=== PATIENT | male | born 2000 | race Caucasian/White ===

== ENCOUNTER 2019-06-11 17:35 | Emergency (ER) | payer OTHER, SELFPAY ==
[2019-06-11 17:56] VITALS: BP 126/71; PULSE 84; RESP 18; TEMP 37.4; O2SAT 100; BMI 19.8
--- NOTE | 2019-06-11 18:30 | ED_ITS ---
HPI - Headache General Chief Complaint: Headache Stated Complaint: Head Injury Time Seen by Provider: 06/11/19 18:01 Source: patient and family Mode of arrival: Ambulatory Limitations: no limitations History of Present Illness HPI Narrative: Patient is a 19-year-old male who is autistic presenting with headache. He has a tendency to hit himself with his hand on his head repetitively and sometimes quite hard he did this about 3 or 4 days ago. Mom states that did feel soft and bruise in the area that he hit. Today he noticed some leakage from his right ear, got worried and came to the emergency department. He has not had any nausea or vomiting no weakness own he occasionally has some blurry vision but not now. He is currently listening to head phones MD Complaint: headache Location: right Severity: mild Related Data Allergies Allergy/AdvReac Type Severity Reaction Status Date / Time No Known Drug Allergies Allergy Verified 06/11/19 17:55 Review of Systems Review of Systems Narrative: GENERAL: Denies chills, fatigue, malaise, fever, sweats, travel HEENT: Denies sinus pain, ear pain, sore throat, difficulty swallowing, neck pain RESPIRATORY: Denies dyspnea, cough, wheezing, hemoptysis, sputum. CARDIOVASCULAR: Denies chest pain, palpitations, orthopnea, edema GASTROINTESTINAL: Denies nausea, vomiting, abdominal pain, diarrhea, constipation, melena. : Denies dysuria, frequency, incontinence, hematuria, urinary retention, flank pain. MUSCULOSKELETAL: Denies weakness, joint pain, or bony pain SKIN: No rash, no erythema, no pruritus NEUROLOGIC: See HPI Denies weakness, dizziness, headache, numbness, change in speech, confusion PSYCHIATRIC: No concerning psychosocial issues. 12 point review of systems is negative except for those stated above and HPI Patient History Medical History Medical History Autism (Acute) Exam Initial Vital Signs Initial Vital Signs: Vital Signs Temperature 99.3 F 06/11/19 17:56 Pulse Rate 84 06/11/19 17:56 Respiratory Rate 18 06/11/19 17:56 Blood Pressure 126/71 06/11/19 17:56 Pulse Oximetry 100 06/11/19 17:56 GENERAL: Well-appearing, well-nourished and in no acute distress. HEENT: Head atraumatic, no crepitations no depression mild tenderness on the right side no significant contusion or laceration EOMI, pupils reactive, face symmetric. EARS: Left ear has cerumen impaction no significant erythema no mastoid tenderness. All right ear tympanic membrane is visualized complete no significant drainage, no hemotympanum CARDIOVASCULAR: Regular rate and rhythm without murmurs, rubs or gallops. RESPIRATORY: Breath sounds equal bilaterally, no wheezes rales or rhonchi. ABDOMEN: Soft, nontender. Normoactive bowel sounds all 4 quadrants. No guarding or rebound. EXTREMITIES: Normal range of motion, no clubbing or edema. Neurovascularly intact NEUROLOGICAL: Alert and oriented x4.Normal gait and speech. Cranial nerves II through XII grossly intact. fire and safety helper strength equal bilaterally Strength and lower extremities equal SKIN: Warm, dry, no laceration, no petechiae, no rashes or lesions. Scores GCS Anderson coma scale eye opening: Spontaneous Rachel coma scale verbal response: Orientated Anderson coma scale motor response: Obey commands Rachel coma scale total score: 15 Course Orders Ordered: Discontinued Medications Ibuprofen (Advil) 800 mg PO NOW ONE Stop: 06/11/19 18:44 Last Admin: 06/11/19 18:53 Dose: 800 mg Documented by: CPRUITT Vital Signs Vital signs: Vital Signs - 8 hr 06/11/19 17:56 Temperature 99.3 F Pulse Rate 84 Respiratory Rate 18 Blood Pressure 126/71 Pulse Oximetry 100 MDM - Headache MDM Narrative Medical decision making narrative: Patient has no history or significant sign of head trauma. He did hit his head with his hand he does have a mild bruise. This was 3 or 4 days ago he has not had any neurologic changes no persistent vomiting to suggest concussion. He does have a mild headache. No drainage from his ears, he was worried it might be CSF. Explanation to both pain patient and parents no need for CT head. Recommend Motrin if needed for headache. Parents are requesting therapy referral to help him stop heating himself. Apparently when he was younger he use to comb his hair so hard until his scalp bled. I discussed all findings with the patient and parent, Education has been performed regarding treatment plan, diagnosis, warning signs and symptoms and all concerns have been addressed. Verbally agree with and understood all of the above. Discharge Plan Departure Patient Disposition: Home Clinical Impression: Headache Qualifiers: Headache type: unspecified Headache chronicity pattern: acute headache Intractability: not intractable Qualified Code(s): R51 - Headache Discharge Date/Time: 06/11/19 18:57 Instructions: DI for Headache Activity Restrictions/Additional Instructions: *You have been diagnosed with headache *What to do: Try not to hit herself in head try hitting a pillow or something else soft *Continue to take medications as directed Ibuprofen 600-800 mg every 8 hours if needed for pain *Follow up with your primary care provider in 2-3 days *Return to ER if you should have persistent vomiting, weakness, or any new, worsening or concerning symptoms Referrals: Antonio Degroot DO [Physician] -
[2019-06-11] MEDS: IBUPROFEN 400 MG TABLET 800 MG PO (18:53)
== END 2019-06-11 18:57 | disposition home or self-care (01) ==
PROVIDERS: Emergency Provider Emergency Medicine
DX: R51 Headache (principal)
CPT/HCPCS: 99282; 99283

== ENCOUNTER 2021-08-03 13:45 | Emergency (ER) | payer OTHER, MEDICAID, SELFPAY ==
[2021-08-03 14:00] VITALS: BP 116/54; PULSE 64; RESP 18; TEMP 36.7; O2SAT 100; BMI 18.4
--- NOTE | 2021-08-03 15:10 | DI.RAD.S_ITS ---
PROCEDURE: XR CHEST 2V INDICATIONS: COVID + / cough TECHNIQUE: 2 views of the chest were acquired. COMPARISON: None. FINDINGS: Surgical changes and devices: None. Lungs and pleura: Lungs are clear. No pleural effusions or pneumothorax. Mediastinum: Mediastinal contours are normal. Heart size is normal. Bones and chest wall: No suspicious bony abnormalities. Soft tissues appear unremarkable. IMPRESSION: No focal infiltrates are seen. If there is clinical concern for a developing pulmonary process, a short-term followup chest series (with PA and lateral views, performed in deep inspiration) is suggested for further evaluation. Dictated by: Giovanny Rodriguez M.D. on 08/03/2021 at 14:30 Approved by: Giovanny Rodriguez M.D. on 08/03/2021 at 14:30
[2021-08-03 15:13] LABS: COVID19 -Nasal RAPID POSITIVE (Negative)
[2021-08-03 16:27] VITALS: BP 110/52; PULSE 57; O2SAT 100
--- NOTE | 2021-08-03 21:00 | ED_ITS ---
HPI - Recheck/Abnormal Lab/Rx <Poly Caputo PA-C - Last Filed: 08/03/21 21:04> General Chief Complaint: Recheck/Abnormal Lab/Rx Stated Complaint: Cough- exposure to Covid Time Seen by Provider: 08/03/21 16:27 Source: patient Mode of arrival: Ambulatory Limitations: no limitations History of Present Illness HPI narrative: 21-year-old male with past medical history autism presents to the ED with cough and congestion, fever, chills for 10 days. Patient states he has been experiencing the symptoms for 10 days, however that he is improving. Patient denies chest pain, shortness of breath, nausea, vomiting, abdominal pain, dysuria, flank pain, lightheadedness, dizziness, syncope. Patient's mother is currently hospitalized for a week due to COVID-19 pneumonia. Patient is in the ED with his father to be tested for COVID-19. Patient is unvaccinated for COVID-19. Related Data Allergies Allergy/AdvReac Type Severity Reaction Status Date / Time No Known Drug Allergies Allergy Verified 08/03/21 14:07 Review of Systems <Poly Caputo PA-C - Last Filed: 08/03/21 21:04> Review of Systems ROS Unobtainable: All systems reviewed & are unremarkable except as noted in HPI and below Constitutional Constitutional: Reports chills, Denies fatigue, Reports fever(s), Denies frequent falls, Denies lethargy and Denies weakness Eyes Eyes: Denies change in vision, Denies eye discharge, Denies irritation and Denies loss of vision ENT Ears, Nose, Mouth, and Throat: Denies change in voice, Denies dizziness, Reports nasal congestion, Denies neck pain, Denies sore throat and Denies throat swelling Cardiovascular Cardiovascular: Denies chest pain, Denies irregular heart rhythm, Denies lightheadedness, Denies palpitations, Denies dyspnea, Denies dyspnea on exertion and Denies orthopnea Respiratory Respiratory: Reports cough, Denies dyspnea, Denies dyspnea on exertion and Denies wheezing Gastrointestinal Gastrointestinal: Denies abdominal pain, Denies change in bowel habits, Denies diarrhea, Denies nausea and Denies vomiting Genitourinary Genitourinary: Denies hematuria, Denies flank pain, Denies urinary incontinence and Denies urinary urgency Musculoskeletal Musculoskeletal: Denies back pain, Denies muscle weakness, Denies neck pain, Denies numbness and Denies tingling Integumentary/Breasts Skin/Breast: Denies pruritus, Denies erythema, Denies rash and Denies wounds Neurologic Neurologic: Denies behavioral changes, Denies confusion, Denies dizziness, Denies frequent falls, Denies loss of vision, Denies numbness, Denies tingling and Denies weakness Psychiatric Psychiatric: Denies anxiety, Denies behavioral changes, Denies confusion, Denies depression, Denies homicidal ideation and Denies suicidal ideation Endocrine Endocrine: Denies fatigue, Denies flushing and Denies palpitations Hematologic/Lymphatic Hematologic/Lymphatic: Denies easy bruising Allergic/Immunologic Allergic/Immunologic: Denies urticaria, Denies throat swelling and Denies wheezing Patient History <Poly Caputo PA-C - Last Filed: 08/03/21 21:04> Medical History Autism Social History Smoking Status: Never smoker Smoking Status: Never smoker alcohol intake frequency: 0-2 drinks per day Substance Use Type: does not use Exam <Poly Caputo PA-C - Last Filed: 08/03/21 21:04> Initial Vital Signs Initial Vital Signs: Vital Signs Temperature 98.1 F 08/03/21 14:00 Pulse Rate 64 08/03/21 14:00 Respiratory Rate 18 08/03/21 14:00 Blood Pressure 116/54 L 08/03/21 14:00 Pulse Oximetry 100 08/03/21 14:00 Const General: cooperative, healthy appearing and comfortable [facility] Head: normal to inspection Eyes General: appearance normal, both eyes and all related structures Neck Neck: normal visual inspection Chest Chest: normal inspection of the chest Resp Effort & Inspection: normal respiratory effort Auscultation: clear to auscultation bilaterally Cardio Rate: regular rate Rhythm: regular rhythm GI Other: Abdomen is soft, nondistended, non tender to palpation. General: No CVA tenderness Skin General: no rashes or lesions noted Neuro General: patient alert, patient awake and patient oriented x3 <Bina Boyd MD - Last Filed: 08/08/21 23:56> Initial Vital Signs Initial Vital Signs: Vital Signs Temperature 98.1 F 08/03/21 14:00 Pulse Rate 64 08/03/21 14:00 Respiratory Rate 18 08/03/21 14:00 Blood Pressure 116/54 L 08/03/21 14:00 Pulse Oximetry 100 08/03/21 14:00 Course <Poly Caputo PA-C - Last Filed: 08/03/21 21:04> Orders Ordered: ED Orders 08/03/21 14:32 COVID19 -Nasal swab/Pre-Proc Stat 08/03/21 15:10 XR chest 2V Stat Vital Signs Vital signs: Vital Signs - 8 hr 08/03/21 14:00 08/03/21 16:27 Temperature 98.1 F Pulse Rate 64 57 L Respiratory Rate 18 Blood Pressure 116/54 L 110/52 L Pulse Oximetry 100 100 <Bina Boyd MD - Last Filed: 08/08/21 23:56> Orders Ordered: ED Orders 08/03/21 14:32 COVID19 -Nasal swab/Pre-Proc Stat 08/03/21 15:10 XR chest 2V Stat Vital Signs Vital signs: Vital Signs - 8 hr 08/03/21 14:00 08/03/21 16:27 Temperature 98.1 F Pulse Rate 64 57 L Respiratory Rate 18 Blood Pressure 116/54 L 110/52 L Pulse Oximetry 100 100 MDM - Recheck/Abnormal Lab/Rx <Poly Caputo PA-C - Last Filed: 08/03/21 21:04> Lab Data Labs: Lab Results 08/03/21 Range/Units 14:32 SARS-CoV-2 (PCR) Positive H (Negative) MDM Narrative Medical decision making narrative: 21-year-old male with past medical history autism presents to the ED with cough and congestion, fever, chills for 10 days. Concern for COVID-19 infection versus other viral URI syndrome. Will test for COVID-19. COVID-19 PCR test was positive. Chest x-ray without acute changes. Patient's vitals are stable in the ED. Patient has no trouble breathing. ED return precautions discussed with patient. Patient verbalized understanding. Discharged patient home. <Bina Boyd MD - Last Filed: 08/08/21 23:56> Lab Data Labs: Lab Results 08/03/21 Range/Units 14:32 SARS-CoV-2 (PCR) Positive H (Negative) Discharge Plan Departure Patient Disposition: Home Clinical Impression: COVID-19 Instructions: DI for COVID-19 (Suspected or Confirmed ) Activity Restrictions/Additional Instructions: You were evaluated in the ED today for cough and congestion. Your chest x-ray was normal. You tested positive for COVID-19. You vitals are stable. Please isolate yourself for 10 days from the start of your symptoms. Please wear a mask, wash hands frequently. Return to the ED if your symptoms worsen, you experience trouble breathing. <Bina Boyd MD - Last Filed: 08/08/21 23:56> Cosign ED Attending Cosignature Attestation: I was immediately available in the department for consultation throughout this patient's visit. I agree with documentation as above. Bina Boyd MD
== END 2021-08-03 16:51 | disposition home or self-care (01) ==
PROVIDERS: Emergency Medicine; Emergency Provider Student in an Organized Health Care Education/Training Program
DX: U07.1 COVID-19 (principal)
CPT/HCPCS: 71046; 87635; 99282; 99283; C9803

== ENCOUNTER 2025-05-03 02:15 | Emergency (ER) | payer MEDICARE, MEDICAID, SELFPAY ==
[2025-05-03 02:10] VITALS: BP 131/60; PULSE 80; RESP 16; TEMP 36.6; O2SAT 98
--- NOTE | 2025-05-03 02:29 | ED.PSYCH ---
HPI - Psych <Montse Sanchez DO - Last Filed: 05/04/25 04:10> General Chief Complaint: Psychiatric Symptoms Stated Complaint: Panic attack, SI Time Seen by Provider: 05/03/25 02:17 Source: patient, RN notes reviewed and old records reviewed Mode of arrival: EMS Limitations: no limitations History of Present Illness HPI Narrative: 25-year-old male history of autism who presents after hitting himself repeatedly after getting quite agitated. Was reportedly at the [facility] earlier during the day patient states loud noises exacerbated days. Patient was at a [place] [facility] [place] for some period time but per EMS was kicked out and taken to [facility] emergency department patient was ultimately discharged home to parents. Patient denies any thoughts of harming others. EMS states he did get quite agitated particularly around his father. Able to calm with verbal deescalation. Patient denies any tobacco, alcohol or recreational drugs. Olanzapine versus Risperdal as well as Ativan. Per EMS patient's father stated that he would like him held on a 72 hour hold that he would not be coming to the hospital to pick him up. Per EMS father also stated that if he was not admitted somewhere he would kick him out. Nursing reached out to mother. She was unaware of current situation. Okay with bloodwork, work up ect. Nursing spoke with father. Requests evaluation and MAE secondary to self injury and gravely disabled. Related Data Previous Rx's ?Medication ?Instructions ?Recorded sulfamethoxazole 800 1 tab PO Q12H #10 tabs 05/03/25 mg-trimethoprim 160 mg tablet (Bactrim DS) Allergies Allergy/AdvReac Type Severity Reaction Status Date / Time No Known Drug Allergies Allergy Verified 05/03/25 03:01 Review of Systems <Montse Sanchez DO - Last Filed: 05/04/25 04:10> Review of Systems ROS Unobtainable: All systems reviewed & are unremarkable except as noted in HPI and below Patient History <Montse Sanchez DO - Last Filed: 05/04/25 04:10> Medical History (Updated 05/03/25 @ 15:48 by Servando Heller DO) Autism Social History Smoking Status: Never smoker alcohol intake frequency: 0-2 drinks per day Exam <Montse Sanchez, DO - Last Filed: 05/04/25 04:10> Narrative Exam Narrative: GEN: Patient appears in moderate distress. HEAD: No evidence of trauma, no raccoon/Stephens sign. NECK: Nontender, painless range of motion, trachea midline Negative Nexus criteria, no midline line tenderness, distracting injury, altered mental status, neuro deficit, recent EtOH. EYES: PERRLA, EOMI ENT: Patient has some erythema swelling and abrasion in his right cheek, trachea is midline, TM's are normal no hemotypanum, Nares are clear, no septal hematoma, no dental or oral injury, airway is normal and with normal occlusion, No bony tenderness on exam, patient can fully open and close his mouth, able to bite down without issue. RESP: Chest is nontender and has symmetric movement, no ecchymosis, breath sounds are normal no crackles, wheezes or rales CVS: Heart sounds are normal, no murmur noted, No JVD. ABG/GI: Nontender, soft, normal bowel sounds, no distention, no organomegaly, pelvic rock is negative NEURO: Oriented AOx3, neuro is grossly intact, sensation and motor is normal all 4 extremities moving, cranial nerves II through XII are intact, GCS is 15 PSYCH: Anxious. SKIN: Intact, warm and dry, no crepitus and without decubitus BACK: No CVA tenderness, no vertebral tenderness, no step-off's, no crepitus EXT: Atraumatic, hips are nontender, no pedal edema, normal color and temperature, normal range of motion of extremities with normal tendon exam, 2+ pulses in all four extremities Initial Vital Signs Initial Vital Signs: Vital Signs Temperature 97.8 F 05/03/25 02:10 Pulse Rate 80 05/03/25 02:10 Respiratory Rate 16 05/03/25 02:10 Blood Pressure 131/60 05/03/25 02:10 Pulse Oximetry 98 05/03/25 02:10 Oxygen Delivery Method Room Air 05/03/25 02:10 <Servando Heller, DO - Last Filed: 05/03/25 15:48> Initial Vital Signs Initial Vital Signs: Vital Signs Temperature 97.8 F 05/03/25 02:10 Pulse Rate 80 05/03/25 02:10 Respiratory Rate 16 05/03/25 02:10 Blood Pressure 131/60 05/03/25 02:10 Pulse Oximetry 98 05/03/25 02:10 Oxygen Delivery Method Room Air 05/03/25 02:10 Course <Montse Sanchez DO - Last Filed: 05/04/25 04:10> Orders Ordered: Discontinued Medications Fosfomycin Tromethamine (Fosfomycin 3 Gm Packet) 3 gm PO NOW ONE Stop: 05/03/25 05:22 Last Admin: 05/03/25 06:50 Dose: 3 gm Documented By: CAROLANN Haloperidol (Haloperidol 5 Mg/Ml Vial) 5 mg IM NOW ONE Stop: 05/03/25 02:51 Lorazepam (Lorazepam 2 Mg/Ml Inj) 1 mg IM NOW ONE Stop: 05/03/25 02:51 Lorazepam (Lorazepam 0.5 Mg Tablet) 1 mg PO NOW ONE Stop: 05/03/25 12:28 Last Admin: 05/03/25 16:20 Dose: Not Given Documented By: ASHLEY Risperidone (Risperidone 0.25 Mg Tablet) 0.5 mg PO BID UNA Last Admin: 05/03/25 16:20 Dose: Not Given Documented By: ASHLEY Trimethoprim/Sulfamethoxazole (Trimeth/Sulfa 160/800 (Ds) Tablet) 1 tab PO NOW ONE Stop: 05/03/25 15:48 Last Admin: 05/03/25 16:21 Dose: 1 tab Documented By: ASHLEY Vital Signs Vital signs: Vital Signs - 8 hr 05/03/25 11:15 Temperature 98.2 F Pulse Rate 74 Respiratory Rate 17 Blood Pressure 124/70 Pulse Oximetry 96 Oxygen Delivery Method Room Air <Servando Heller DO - Last Filed: 05/03/25 15:48> Orders Ordered: Discontinued Medications Fosfomycin Tromethamine (Fosfomycin 3 Gm Packet) 3 gm PO NOW ONE Stop: 05/03/25 05:22 Last Admin: 05/03/25 06:50 Dose: 3 gm Documented By: CAROLANN Haloperidol (Haloperidol 5 Mg/Ml Vial) 5 mg IM NOW ONE Stop: 05/03/25 02:51 Lorazepam (Lorazepam 2 Mg/Ml Inj) 1 mg IM NOW ONE Stop: 05/03/25 02:51 Lorazepam (Lorazepam 0.5 Mg Tablet) 1 mg PO NOW ONE Stop: 05/03/25 12:28 Last Admin: 05/03/25 16:20 Dose: Not Given Documented By: ASHLEY Risperidone (Risperidone 0.25 Mg Tablet) 0.5 mg PO BID UNA Last Admin: 05/03/25 16:20 Dose: Not Given Documented By: ASHLEY Trimethoprim/Sulfamethoxazole (Trimeth/Sulfa 160/800 (Ds) Tablet) 1 tab PO NOW ONE Stop: 05/03/25 15:48 Last Admin: 05/03/25 16:21 Dose: 1 tab Documented By: ASHLEY Vital Signs Vital signs: Vital Signs - 8 hr 05/03/25 11:15 Temperature 98.2 F Pulse Rate 74 Respiratory Rate 17 Blood Pressure 124/70 Pulse Oximetry 96 Oxygen Delivery Method Room Air MDM - Psych <Montse Sanchez, - Last Filed: 05/04/25 04:10> Lab Data 05/03/25 03:35 05/03/25 03:35 Labs: Lab Results 05/03/25 05/03/25 05/03/25 Range/Units 03:35 04:20 04:50 WBC 12.5 H (4.5-11.0) X10^3/uL RBC 4.09 L (4.5-5.9) X10^6/uL Hgb 13.0 L (13.5-17.5) g/dL Hct 37.6 L (41-53) % MCV 91.8 (80-100) fL MCH 31.8 (26-34) PG MCHC 34.7 (30-36) % RDW 13.5 (11.6-14.8) % Plt Count 216 (150-400) X10^3/uL Neut % (Auto) 81.0 H (50-75) % Lymph % (Auto) 10.4 L (25-40) % Iron % (Auto) 7.2 (3-14) % Eos % (Auto) 0.4 L (2-4) % Baso % (Auto) 1.0 (0-2) % Neut # (Auto) 63131 H (7174-5963) /uL Lymph # (Auto) 1300 (3712-5466) /uL Iron # (Auto) 900 (0-900) /uL Eos # (Auto) 0 (0-450) /uL Baso # (Auto) 100 (0-100) /uL Sodium 140 (137-145) mmol/L Potassium 3.7 (3.4-5.1) mmol/L Chloride 105 (98-107) mmol/L Carbon Dioxide 26 (22-32) mmol/L BUN 19 (9-20) mg/dL Creatinine 0.80 (0.66-1.25) mg/dL Estimated GFR > 60 (>60) mL/min BUN/Creatinine Ratio 23.8 H (6-22) Glucose 99 (70-99) mg/dL Calcium 9.3 (8.4-10.2) mg/dL Total Bilirubin 1.5 H (0.2-1.3) mg/dL AST 35 (17-59) IU/L ALT 16 (<50) IU/L Alkaline Phosphatase 51 (38-126) U/L Total Creatine Kinase 157 (55-170) U/L Total Protein 7.5 (6.3-8.2) g/dL Albumin 4.8 (3.5-5.0) g/dL Globulin 2.7 (1.7-4.1) g/dL Albumin/Globulin Ratio 1.8 (1.0-2.8) TSH 1.29 (0.47-4.68) uIU/mL Urine Color Brown Urine Appearance Cloudy Urine pH 5.5 (4.5-8.0) Ur Specific [place] >=1.030 H (1.000-1.035) Urine Protein 3+ H (Negative) Urine Glucose (UA) Negative (Negative) g/dL Urine Ketones Trace H (NEGATIVE) Urine Occult Blood 3+ H (Negative) Urine Nitrate Positive H (Negative) Urine Bilirubin 2+ H (NEGATIVE) Ur Bilirubin Confirm Negative (Negative) Urine Urobilinogen 1.0 (0.2) E.U./dL Ur Leukocyte Esterase Negative (NEGATIVE) Urine RBC 1-5/hpf (0-5/HPF) Urine WBC 0-1/hpf (0-5/HPF) Ur Squamous Epith Cells 0-1 /hpf (0-5/HPF) Amorphous Sediment 4+ Urine Bacteria Few (2-10) H (None) Granular Casts 1-5/lpf (None) Ur Culture Indicated? Specimen cultured Vol Urine Centrifuged 10ml (spun) Salicylates < 1.0 (<20) mg/dL U Opiates 300ng/mL cut Negative (Negative) Ur Oxycodone Screen Negative (Negative) Urine Methadone Screen Negative (Negative) Acetaminophen < 10 (10-30) ug/mL Ur Barbiturates Screen Negative (Negative) U Tricyclic Antidepress Negative (Negative) Ur Phencyclidine Scrn Negative (Negative) Ur Amphetamines Screen Negative (Negative) U Methamphetamines Scrn Negative (Negative) Ur MDMA Scrn (Ecstasy) Negative (Negative) U Benzodiazepines Scrn Negative (Negative) Urine Cocaine Screen Negative (Negative) U Marijuana (THC) Screen Negative (Negative) Urine Specific [place] Ethyl Alcohol < 10 (<10) mg/dL Ur Creatinine SARS-CoV-2 (PCR) Negative (Negative) 05/03/25 Range/Units 04:50 WBC (4.5-11.0) X10^3/uL RBC (4.5-5.9) X10^6/uL Hgb (13.5-17.5) g/dL Hct (41-53) % MCV (80-100) fL MCH (26-34) PG MCHC (30-36) % RDW (11.6-14.8) % Plt Count (150-400) X10^3/uL Neut % (Auto) (50-75) % Lymph % (Auto) (25-40) % Iron % (Auto) (3-14) % Eos % (Auto) (2-4) % Baso % (Auto) (0-2) % Neut # (Auto) (9134-2355) /uL Lymph # (Auto) (0490-9541) /uL Iron # (Auto) (0-900) /uL Eos # (Auto) (0-450) /uL Baso # (Auto) (0-100) /uL Sodium (137-145) mmol/L Potassium (3.4-5.1) mmol/L Chloride (98-107) mmol/L Carbon Dioxide (22-32) mmol/L BUN (9-20) mg/dL Creatinine (0.66-1.25) mg/dL Estimated GFR (>60) mL/min BUN/Creatinine Ratio (6-22) Glucose (70-99) mg/dL Calcium (8.4-10.2) mg/dL Total Bilirubin (0.2-1.3) mg/dL AST (17-59) IU/L ALT (<50) IU/L Alkaline Phosphatase (38-126) U/L Total Creatine Kinase (55-170) U/L Total Protein (6.3-8.2) g/dL Albumin (3.5-5.0) g/dL Globulin (1.7-4.1) g/dL Albumin/Globulin Ratio (1.0-2.8) TSH (0.47-4.68) uIU/mL Urine Color Urine Appearance Urine pH TNP (4.5-8.0) Ur Specific [place] (1.000-1.035) Urine Protein (Negative) Urine Glucose (UA) (Negative) g/dL Urine Ketones (NEGATIVE) Urine Occult Blood (Negative) Urine Nitrate (Negative) Urine Bilirubin (NEGATIVE) Ur Bilirubin Confirm (Negative) Urine Urobilinogen (0.2) E.U./dL Ur Leukocyte Esterase (NEGATIVE) Urine RBC (0-5/HPF) Urine WBC (0-5/HPF) Ur Squamous Epith Cells (0-5/HPF) Amorphous Sediment Urine Bacteria (None) Granular Casts (None) Ur Culture Indicated? Vol Urine Centrifuged Salicylates (<20) mg/dL U Opiates 300ng/mL cut (Negative) Ur Oxycodone Screen (Negative) Urine Methadone Screen (Negative) Acetaminophen (10-30) ug/mL Ur Barbiturates Screen (Negative) U Tricyclic Antidepress (Negative) Ur Phencyclidine Scrn (Negative) Ur Amphetamines Screen (Negative) U Methamphetamines Scrn (Negative) Ur MDMA Scrn (Ecstasy) (Negative) U Benzodiazepines Scrn (Negative) Urine Cocaine Screen (Negative) U Marijuana (THC) Screen (Negative) Urine Specific [place] TNP Ethyl Alcohol (<10) mg/dL Ur Creatinine TNP SARS-CoV-2 (PCR) (Negative) MDM Narrative Medical decision making narrative: White count of 12.5 hemoglobin of 13 platelets of 216, chemistries are appropriate BUN creatinine is appropriate total bilirubin is 1.5 AST ALT are appropriate, TSH is 1.29. Total CK is 157. Salicylate, acetaminophen ETOH is negative. Urine drug screen is negative. Urinalysis positive for protein trace ketones 3+ blood positive for nitrates 2+ bili negative leuks, 1-5 RBCs 1 white cell, 1 squamous few bacteria 1 5 cast was spent for culture. UA shows changes consistent with UTI. Started on oral antibiotic. Patient did take oral antibiotic. DCR contacted, dispatching. Signed out to Dr. Heller while awaiting DCR evaluation. <Servando Heller, DO - Last Filed: 05/03/25 15:48> Lab Data Labs: Lab Results 05/03/25 05/03/25 05/03/25 Range/Units 03:35 04:20 04:50 WBC 12.5 H (4.5-11.0) X10^3/uL RBC 4.09 L (4.5-5.9) X10^6/uL Hgb 13.0 L (13.5-17.5) g/dL Hct 37.6 L (41-53) % MCV 91.8 (80-100) fL MCH 31.8 (26-34) PG MCHC 34.7 (30-36) % RDW 13.5 (11.6-14.8) % Plt Count 216 (150-400) X10^3/uL Neut % (Auto) 81.0 H (50-75) % Lymph % (Auto) 10.4 L (25-40) % Iron % (Auto) 7.2 (3-14) % Eos % (Auto) 0.4 L (2-4) % Baso % (Auto) 1.0 (0-2) % Neut # (Auto) 27875 H (9122-7443) /uL Lymph # (Auto) 1300 (6482-1525) /uL Iron # (Auto) 900 (0-900) /uL Eos # (Auto) 0 (0-450) /uL Baso # (Auto) 100 (0-100) /uL Sodium 140 (137-145) mmol/L Potassium 3.7 (3.4-5.1) mmol/L Chloride 105 (98-107) mmol/L Carbon Dioxide 26 (22-32) mmol/L BUN 19 (9-20) mg/dL Creatinine 0.80 (0.66-1.25) mg/dL Estimated GFR > 60 (>60) mL/min BUN/Creatinine Ratio 23.8 H (6-22) Glucose 99 (70-99) mg/dL Calcium 9.3 (8.4-10.2) mg/dL Total Bilirubin 1.5 H (0.2-1.3) mg/dL AST 35 (17-59) IU/L ALT 16 (<50) IU/L Alkaline Phosphatase 51 (38-126) U/L Total Creatine Kinase 157 (55-170) U/L Total Protein 7.5 (6.3-8.2) g/dL Albumin 4.8 (3.5-5.0) g/dL Globulin 2.7 (1.7-4.1) g/dL Albumin/Globulin Ratio 1.8 (1.0-2.8) TSH 1.29 (0.47-4.68) uIU/mL Urine Color Brown Urine Appearance Cloudy Urine pH 5.5 (4.5-8.0) Ur Specific [place] >=1.030 H (1.000-1.035) Urine Protein 3+ H (Negative) Urine Glucose (UA) Negative (Negative) g/dL Urine Ketones Trace H (NEGATIVE) Urine Occult Blood 3+ H (Negative) Urine Nitrate Positive H (Negative) Urine Bilirubin 2+ H (NEGATIVE) Ur Bilirubin Confirm Negative (Negative) Urine Urobilinogen 1.0 (0.2) E.U./dL Ur Leukocyte Esterase Negative (NEGATIVE) Urine RBC 1-5/hpf (0-5/HPF) Urine WBC 0-1/hpf (0-5/HPF) Ur Squamous Epith Cells 0-1 /hpf (0-5/HPF) Amorphous Sediment 4+ Urine Bacteria Few (2-10) H (None) Granular Casts 1-5/lpf (None) Ur Culture Indicated? Specimen cultured Vol Urine Centrifuged 10ml (spun) Salicylates < 1.0 (<20) mg/dL U Opiates 300ng/mL cut Negative (Negative) Ur Oxycodone Screen Negative (Negative) Urine Methadone Screen Negative (Negative) Acetaminophen < 10 (10-30) ug/mL Ur Barbiturates Screen Negative (Negative) U Tricyclic Antidepress Negative (Negative) Ur Phencyclidine Scrn Negative (Negative) Ur Amphetamines Screen Negative (Negative) U Methamphetamines Scrn Negative (Negative) Ur MDMA Scrn (Ecstasy) Negative (Negative) U Benzodiazepines Scrn Negative (Negative) Urine Cocaine Screen Negative (Negative) U Marijuana (THC) Screen Negative (Negative) Urine Specific [place] Ethyl Alcohol < 10 (<10) mg/dL Ur Creatinine SARS-CoV-2 (PCR) Negative (Negative) 05/03/25 Range/Units 04:50 WBC (4.5-11.0) X10^3/uL RBC (4.5-5.9) X10^6/uL Hgb (13.5-17.5) g/dL Hct (41-53) % MCV (80-100) fL MCH (26-34) PG MCHC (30-36) % RDW (11.6-14.8) % Plt Count (150-400) X10^3/uL Neut % (Auto) (50-75) % Lymph % (Auto) (25-40) % Iron % (Auto) (3-14) % Eos % (Auto) (2-4) % Baso % (Auto) (0-2) % Neut # (Auto) (7052-6966) /uL Lymph # (Auto) (0139-9693) /uL Iron # (Auto) (0-900) /uL Eos # (Auto) (0-450) /uL Baso # (Auto) (0-100) /uL Sodium (137-145) mmol/L Potassium (3.4-5.1) mmol/L Chloride (98-107) mmol/L Carbon Dioxide (22-32) mmol/L BUN (9-20) mg/dL Creatinine (0.66-1.25) mg/dL Estimated GFR (>60) mL/min BUN/Creatinine Ratio (6-22) Glucose (70-99) mg/dL Calcium (8.4-10.2) mg/dL Total Bilirubin (0.2-1.3) mg/dL AST (17-59) IU/L ALT (<50) IU/L Alkaline Phosphatase (38-126) U/L Total Creatine Kinase (55-170) U/L Total Protein (6.3-8.2) g/dL Albumin (3.5-5.0) g/dL Globulin (1.7-4.1) g/dL Albumin/Globulin Ratio (1.0-2.8) TSH (0.47-4.68) uIU/mL Urine Color Urine Appearance Urine pH TNP (4.5-8.0) Ur Specific [place] (1.000-1.035) Urine Protein (Negative) Urine Glucose (UA) (Negative) g/dL Urine Ketones (NEGATIVE) Urine Occult Blood (Negative) Urine Nitrate (Negative) Urine Bilirubin (NEGATIVE) Ur Bilirubin Confirm (Negative) Urine Urobilinogen (0.2) E.U./dL Ur Leukocyte Esterase (NEGATIVE) Urine RBC (0-5/HPF) Urine WBC (0-5/HPF) Ur Squamous Epith Cells (0-5/HPF) Amorphous Sediment Urine Bacteria (None) Granular Casts (None) Ur Culture Indicated? Vol Urine Centrifuged Salicylates (<20) mg/dL U Opiates 300ng/mL cut (Negative) Ur Oxycodone Screen (Negative) Urine Methadone Screen (Negative) Acetaminophen (10-30) ug/mL Ur Barbiturates Screen (Negative) U Tricyclic Antidepress (Negative) Ur Phencyclidine Scrn (Negative) Ur Amphetamines Screen (Negative) U Methamphetamines Scrn (Negative) Ur MDMA Scrn (Ecstasy) (Negative) U Benzodiazepines Scrn (Negative) Urine Cocaine Screen (Negative) U Marijuana (THC) Screen (Negative) Urine Specific [place] TNP Ethyl Alcohol (<10) mg/dL Ur Creatinine TNP SARS-CoV-2 (PCR) (Negative) MDM Narrative Medical decision making narrative: White count of 12.5 hemoglobin of 13 platelets of 216, chemistries are appropriate BUN creatinine is appropriate total bilirubin is 1.5 AST ALT are appropriate, TSH is 1.29. Total CK is 157. Salicylate, acetaminophen ETOH is negative. Urine drug screen is negative. Urinalysis positive for protein trace ketones 3+ blood positive for nitrates 2+ bili negative leuks, 1-5 RBCs 1 white cell, 1 squamous few bacteria 1 5 cast was spent for culture. UA shows changes consistent with UTI. Started on oral antibiotic. Patient did take oral antibiotic. DCR contacted, dispatching. Signed out to Dr. Heller while awaiting DCR evaluation. DCR has evaluated patient now accepted at [facility] by and is MAE. Discharge Plan Departure Patient Disposition: Xfer Psychiatric Hosp Clinical Impression: Injury, self-inflicted, Acute UTI Contusion of face Qualifiers: Encounter type: initial encounter Qualified Code(s): S00.83XA - Contusion of other part of head, initial encounter Abrasion of face Qualifiers: Encounter type: initial encounter Qualified Code(s): S00.81XA - Abrasion of other part of head, initial encounter Prescriptions: New sulfamethoxazole-trimethoprim [Bactrim DS] 800-160 mg tablet 1 tab PO Q12H Qty: 10 0RF
[2025-05-03 03:45] LABS: Add Manual Diff / Slide Review NO; Hematocrit 37.6 % (41-53); Hemoglobin 13.0 g/dL (13.5-17.5); Lymphocytes Absolute Auto 1300 /uL (1100-4500); Mean Corpuscular HGB Conc 34.7 % (30-36); Mean Corpuscular Hemoglobin 31.8 PG (26-34); Mean Corpuscular Volume 91.8 fL (80-100); Platelet Count 216 X10^3/uL (150-400)
[2025-05-03 03:55] LABS: Acetaminophen < 10 ug/mL (10-30); Alanine Aminotransferase 16 IU/L (<50); Albumin 4.8 g/dL (3.5-5.0); Albumin Globulin Ratio 1.8 (1.0-2.8); Alkaline Phosphatase 51 U/L (38-126); Blood Urea Nitrogen 19 mg/dL (9-20); Calcium 9.3 mg/dL (8.4-10.2); Carbon Dioxide 26 mmol/L (22-32); Chloride 105 mmol/L (98-107); Estimated Glomerular Filt Rate > 60 mL/min (>60); Ethanol (ETOH) < 10 mg/dL (<10); Globulin 2.7 g/dL (1.7-4.1); Glucose 99 mg/dL (70-99); HEMOLYSIS < 15 (0-50); Potassium 3.7 mmol/L (3.4-5.1); Salicylate < 1.0 mg/dL (<20); Sodium 140 mmol/L (137-145); Total Protein 7.5 g/dL (6.3-8.2)
[2025-05-03 05:05] LABS: Urine MDMA Negative (Negative); Urine Methamphetamines Negative (Negative); Urine THC Negative (Negative); Urine Tricyclic Antidepressant Negative (Negative)
[2025-05-03 05:07] LABS: Appearance Urine UA CLOUDY; Bilirubin Urine UA 2+ (NEGATIVE); Color Urine UA BROWN; Glucose Urine UA NEGATIVE (Negative); Ketones Urine UA TRACE (NEGATIVE); Leukocyte Esterase Urine UA NEGATIVE (NEGATIVE); Nitrite Urine UA POSITIVE (Negative); Occult Blood Urine UA 3+ (Negative); Protein Urine UA 3+ (Negative); Specific Gravity Urine UA >=1.030 (1.000-1.035); Urobilinogen Urine UA 1.0 E.U./dL (0.2); pH Urine UA 5.5 (4.5-8.0)
[2025-05-03 05:08] LABS: TSH w/ Reflex to FT4 1.29 uIU/mL (0.47-4.68)
[2025-05-03 05:17] LABS: Creatine Kinase 157 U/L (55-170)
[2025-05-03 05:17] LABS: COVID19 -Nasal RAPID Negative (Negative)
[2025-05-03 05:18] LABS: Culture Indicated Urine Specimen Cultured
[2025-05-03 05:19] LABS: Ictotest Urine Negative (Negative)
[2025-05-03] MEDS: FOSFOMYCIN 3 GM PACKET PO (06:50)
[2025-05-03 11:15] VITALS: BP 124/70; PULSE 74; RESP 17; TEMP 36.8; O2SAT 96
--- NOTE | 2025-05-03 11:34 | PC.NURSE ---
The patient is being updated by the DCR. He is tearful but asking questions calmly.
--- NOTE | 2025-05-03 11:55 | PC.NURSE ---
Patient in bathroom getting changed.
--- NOTE | 2025-05-03 12:21 | PC.NURSE ---
Patient is agreeable with the nurse to informed the nurse if his feelings of being overwhelmed increase. He is agreeable to take medication at that time to prevent escalation.
--- NOTE | 2025-05-03 13:31 | PC.NURSE ---
05/03/2025 @1323. FRANK recd report from Naveen
--- NOTE | 2025-05-03 13:32 | PC.NURSE ---
05/03/2025 @1330. Pt sitting up on side of bed calmy texting. Meal provided on chair in front of patient. Pt not showing interest at this time.
--- NOTE | 2025-05-03 13:46 | PC.NURSE ---
05/03/2025 @4591 RN encouraged pt to eat lunch, pt declined at this time, RN additionally offered to grab pt fresh cup of water, pt stated he did no need water at this time and thanked RN for the offer. Pt quietly sitting on edge of bed w/ headphones on.
--- NOTE | 2025-05-03 14:14 | CM.SWNOTE ---
ED APPRENTICE ELECTRICIAN Note DCR is present upon APPRENTICE ELECTRICIAN's arrival, it is reported that NAKITA Henderson plans to detain patient. 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 It is reported that patient has had escalated self harm behaviors and destruction of property in recent months, was recently kicked out of [facility] in [place], [place] and current charges against him. It is reported that patient has been unstable due to not taking medications as prescribed. LTC is for parents to seek guardianship and to identify [facility] and termite control service representative care placement for patient. NAKITA Henderson is able to seek MAE placement for patient at [facility] in unit [facility], accepted by FRANCI Castillo intake-Bonnie. RN-RN is [phone]. APPRENTICE ELECTRICIAN calls [facility] and schedules transport for 1530, APPRENTICE ELECTRICIAN calls [facility] regarding this pickle cutter time. Awaiting for DCR to send MAE paperwork to [facility] and DCR to serve patient. Plan: patient to transfer to [facility] for MAE placement this afternoon via BLS. Sienna Geiger, ROLL WINDER
--- NOTE | 2025-05-03 14:41 | PC.NURSE ---
05/03/2025 @1436 RN offered pt another snack, water, and to assist to restroom. Pt declined all. Pt asked what progress was made on his transfer and wanted to speak to someone about details.
--- NOTE | 2025-05-03 14:48 | PC.NURSE ---
05/03/2025 @1448 CC DCR @bedside discussing plan of care w/ pt.
--- NOTE | 2025-05-03 15:16 | PC.NURSE ---
05/03/2025 @1516 Pt sitting quietly on edge of bed looking on phone. Snack sitting in front of pt, pt declines to eat, drink, and use restroom at this time.
[2025-05-03 15:37] VITALS: BP 124/75; PULSE 78; RESP 16; TEMP 36.9; O2SAT 100
--- NOTE | 2025-05-03 15:43 | PC.NURSE ---
05/03/2025 @1500 RN assisted pt to bathroom. Pt and RN briefly discussed [employer] games. Pt in good spirits. RN offered pt to finish lunch, pt stated his food could be tossed at this time and he was finished.
--- NOTE | 2025-05-03 16:01 | PC.NURSE ---
05/03/2025 RN placed warm blanket on patients shoulder and around stuffed animal for comfort. RN also assisted w/ placing socks on patient. No complaints at this time.
--- NOTE | 2025-05-03 16:16 | PC.NURSE ---
05/03/2025 @1616 RN brought in new gown top d/t saliva being noted on original scrub top. RN also offered to bring in a cup of water to pt and he stated that he had a couple cartons of milk and continues to decline water at this time. Pt continues to sit on the edge of bed in same position.
[2025-05-03] MEDS: TRIMETH/SULFA 160/800 (DS) TABLET 1 TAB PO (16:21)
--- NOTE | 2025-05-03 16:24 | PC.NURSE ---
05/03/2025 Patient drank x1 cup of water while taking abx (please see MAR). Pt tolerated well and stated he would continue to take sips of water occasionally.
--- NOTE | 2025-05-03 16:43 | PC.NURSE ---
05/03/2025 @1642 Transfer team arrived and outside pt room
--- NOTE | 2025-05-03 16:45 | PC.NURSE ---
05/03/2025 Pt stated he would independently change into new scrub top. Sherry DAY RN giving report to transfer team @[id number]
[2025-05-03 16:52] VITALS: BP 114/68; PULSE 63; RESP 18; TEMP 36.6; O2SAT 100
--- NOTE | 2025-05-03 17:04 | PC.NURSE ---
05/03/2025 @1704 Pt wheeled out safely w/ transport team, belongings safely secured, scrub top changed.
--- NOTE | 2025-05-03 17:05 | PC.NURSE ---
05/03/2025 @5390 RN assisted transport team to safely secure patient onto stretcher for transport. Pt tolerated well and in good spirits for transport.
--- NOTE | 2025-05-03 17:07 | PC.NURSE ---
05/03/2025 @1656 RN encouraged pt to relieve bladder one last time before transport and change into new scrub top. Pt in bathroom now.
== END 2025-05-03 17:05 ==
PROVIDERS: Emergency Provider Emergency Medicine
DX: S00.83XA Contusion of other part of head, initial encounter (principal); S00.81XA Abrasion of other part of head, initial encounter; N39.0 Urinary tract infection, site not specified; F84.0 Autistic disorder; R45.88 Nonsuicidal self-harm
CPT/HCPCS: 80053; 80305; 80320; 80329; 81001; 82550; 84443; 85025; 87086; 87635; 99284; G0480

== ENCOUNTER 2025-06-07 20:08 | Emergency (ER) | payer MEDICAID, SELFPAY ==
[2025-06-07 20:17] VITALS: BP 103/56; PULSE 65; RESP 16; TEMP 36.6; TEMP 36.7; O2SAT 100; BMI 19.0
--- NOTE | 2025-06-07 23:30 | PC.NURSE ---
pt states he cut the inside of his mouth from something he ate, pt denies any other s/s. EMS was called when the neighbor heard the pt yelling tonight. parents want the pt detained d/t his erratic behavior tonight. pt denies any SI or HI but parents believe he is SI and are refusing to allow him to come home tonight
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
[2025-06-08 01:32] LABS: Add Manual Diff / Slide Review NO; Hematocrit 41.6 % (41-53); Hemoglobin 14.3 g/dL (13.5-17.5); Lymphocytes Absolute Auto 2000 /uL (1100-4500); Mean Corpuscular HGB Conc 34.5 % (30-36); Mean Corpuscular Hemoglobin 31.4 PG (26-34); Mean Corpuscular Volume 90.9 fL (80-100); Platelet Count 236 X10^3/uL (150-400)
[2025-06-08 01:38] LABS: Acetaminophen < 10 ug/mL (10-30); Alanine Aminotransferase 19 IU/L (<50); Albumin 5.2 g/dL (3.5-5.0); Albumin Globulin Ratio 1.6 (1.0-2.8); Alkaline Phosphatase 58 U/L (38-126); Blood Urea Nitrogen 14 mg/dL (9-20); Calcium 9.5 mg/dL (8.4-10.2); Carbon Dioxide 26 mmol/L (22-32); Chloride 101 mmol/L (98-107); Estimated Glomerular Filt Rate > 60 mL/min (>60); Ethanol (ETOH) < 10 mg/dL (<10); Globulin 3.2 g/dL (1.7-4.1); Glucose 99 mg/dL (70-99); HEMOLYSIS < 15 (0-50); Potassium 3.9 mmol/L (3.4-5.1); Salicylate < 1.0 mg/dL (<20); Sodium 138 mmol/L (137-145); Total Protein 8.4 g/dL (6.3-8.2)
[2025-06-08 02:08] LABS: TSH w/ Reflex to FT4 0.77 uIU/mL (0.47-4.68)
[2025-06-08 02:19] LABS: UR Morphine/Opiate cutoff 300 Negative (Negative); Ur Specific Gravity Normal (Normal); Urine MDMA Negative (Negative); Urine Methamphetamines Negative (Negative); Urine Tetrahydrocannabinol Negative (Negative); Urine Tricyclic Antidepressant Negative (Negative)
[2025-06-08 02:27] LABS: Appearance Urine UA CLOUDY; Bilirubin Urine UA NEGATIVE (NEGATIVE); Color Urine UA YELLOW; Glucose Urine UA NEGATIVE (Negative); Ketones Urine UA NEGATIVE (NEGATIVE); Leukocyte Esterase Urine UA NEGATIVE (NEGATIVE); Nitrite Urine UA NEGATIVE (Negative); Occult Blood Urine UA 1+ (Negative); Protein Urine UA TRACE (Negative); Specific Gravity Urine UA 1.020 (1.000-1.035); Urobilinogen Urine UA 1.0 E.U./dL (0.2); pH Urine UA 6.5 (4.5-8.0)
[2025-06-08 02:39] LABS: COVID19 - ADMIT (NP swab/PCR) Negative (Negative)
[2025-06-08 02:42] LABS: Culture Indicated Urine Cult Not Indicated
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
--- NOTE | 2025-06-08 03:31 | PC.NURSE ---
vs not attemped at this time d/t pt agitation
[2025-06-08 09:06] VITALS: BP 113/53; PULSE 68; RESP 18; TEMP 36.7; O2SAT 99
--- NOTE | 2025-06-08 10:11 | PC.NURSE ---
DCR assessed Pt and determined he is not gravely disabled. This RN called and spoke with Edwin (Pt's father) who will be en route for d/c home. Father was informed of [place] law and his ability to petition the court for guardianship should he feel it is warranted.
--- NOTE | 2025-06-08 13:58 | CM.SWNOTE ---
ED PLASTIC SURGEON Note Patient is 25 y/o male who presented to the ED last evening due to concern for patient's behavior. Patient had similar presentation on 05/03/25 resulting in MAE detainment at [facility]. Patient was evaluated by NAKITA Henderson prior to PLASTIC SURGEON's presentation to ED. It was determined that patient did not meet criteria for detainment. Patient's parents cook pickled meat patient upon medical clearance with rx, patient and parents to f/u with outpatient providers. OPAL BeardenSW
== END 2025-06-08 14:00 | disposition home or self-care (01) ==
PROVIDERS: Emergency Provider Family Medicine
DX: F31.77 Bipolar disorder, in partial remission, most recent episode mixed (principal); F84.5 Asperger's syndrome
CPT/HCPCS: 80053; 80305; 80320; 80329; 81001; 84443; 85025; 87635; 99283; G0480